=== PATIENT | male | born 1965 | race Caucasian/White ===

== ENCOUNTER 2017-02-27 10:37 | Day surgery (SDC) | payer OTHER ==
[~2017-02-27] VITALS: Ht 193 cm; Wt 97.5 kg
[~2017-02-27 10:37] MED LIST: 0.9% Sodium Chloride 1,000 ML IV SCH; CYCL10TA9 PO; KEN25CR EXT; KLO5T PO; PARO20TA5 PO; Sodium Chloride LOK Flush 10 mL Syringe IV PRN; fentaNYL-PF 50 mCg/mL 2 mL Inj IVPUSH PRN
[2017-02-27 11:00] VITALS: BP 135/89; PULSE 98; RESP 16; O2SAT 100
--- NOTE | 2017-02-27 12:53 | PCM.ENDCOL ---
Colonoscopy Date of Service: Feb 27, 2017 Physician David Caldwell MD Pre Procedure Diagnosis: Screening history of polyp Post Procedure Dx & Findings: Polyp hemorrhoids diverticuli Procedure Colonoscopy PROCEDURE IN DETAIL: Prep adequate Withdrawal time 16 minutes After unremarkable rectal examination the Olympus video colonoscope was inserted patient's anal canal and was advanced to cecum. Landmarks were identified including the ileocecal valve and appendiceal orifice. Scope was withdrawn systematically. Visualized colonic mucosa showed healthy shiny mucosa with normal healthy-appearing vasculature. In the cecum, there were 2 polyps. One was about 5 mm in size this was removed completely using cold snare. The other one was about millimeters in size which was also removed completely using cold snare. In the ascending colon colon, there was 1 cm polyp which was removed completely using hot snare. Visible vessel noted therefore resolution clip deployed. Successful deployment. In the transverse colon, as a 1 mm polyp which was removed completely using cold forceps. In the descending colon, there was a 3 mm polyp which was removed completely using cold snare. In the rectum there was another 3 mm polyp which was removed completely using cold snare. Patient had several medium-sized diverticula in the sigmoid colon. In the rectum retroflexion was done which showed hemorrhoids. Anal canal was inspected carefully on the way out and hemorrhoids noted. Impression Polyps 6 status post complete removal Diverticuli Hemorrhoids Recommendation Repeat colonoscopy 3 years Diverticula diet Presedation Assessment Risks and Benefits Informed consent was obtained from the patient after all risks and benefits including but not limited to drug reaction, infection, pain, bleeding, perforation, as well as alternatives were discussed. Patient monitoring Continuous pulse oximetry, cardiac monitoring, blood pressure monitoring, IV access, and oxygen at 2L per nasal cannula. Periprocedural Fentanyl: Fentanyl 200mcg Incrementally Midazolam: Midazolam 10mg Incrementally Complications There were no periprocedural complications identified. Post Procedure Plan Post Procedure Recommendations 1. Restrict activities today. 2. Resume normal activities in the morning. 3. Resume medications. 4. Patient informed of normal post procedure side effects as bloating, drowsiness, blood streaking in the stool. 5. average risk CRCS. If colon polyps come back as: -Hyperplastic- can repeat colonoscopy in 10 years -Tubular adenoma- repeat colonoscopy in 5 years -Tubulovillous/villous adenoma- repeat colonoscopy in 3 years -If any dysplasia- return to clinic as soon as possible 6. Please don't hesitate to call me with any questions. David Caldwell MD Feb 27, 2017 12:53
[2017-02-27 12:56] VITALS: BP 133/76; PULSE 83; RESP 16; O2SAT 95
[2017-02-27 13:06] VITALS: BP 133/72; PULSE 93; RESP 16; O2SAT 96
[2017-02-27 13:11] VITALS: BP 149/83; PULSE 76; RESP 16; O2SAT 97
--- NOTE | 2017-03-01 18:42 | PATH ---
SURGICAL PATHOLOGY Attending Physician:Daivd Caldwell M.D. CASE STATUS: Signed Out PATIENT NAME: LENO GONZALEZ PID: [id number] : 1965 DATE COLLECTED:02/27/2017 20:26 SPECIMEN: 1: Colon, Biopsy 2: Colon, Biopsy 3: Colon, Biopsy 4: Colon, Biopsy 5: Rectum, Biopsy CLINICAL HISTORY: 1). CECUM POLYPS 2). ASCENDING POLYP 3). TRANSVERSE POLYP 4). DESCENDING POLYP 5). RECTAL POLYP FINAL DIAGNOSIS: 1. Cecum, Polyps, Biopsies: Portions of tubular adenoma x2; negative for high-grade dysplasia. 2. Ascending Colon, Polyp, Biopsy: Multiple portions (approximately 8) of sessile serrated adenoma. 3. Transverse Colon, Polyp, Biopsy: Tubular adenoma; negative for high-grade dysplasia. 4. Descending Colon, Polyp, Biopsy: Tubular adenoma; negative for high-grade dysplasia. 5. Rectum, Polyp, Biopsy: Superficial portions of colorectal mucosa x 2 with rare lymphoid aggregates and no significant histomorphologic abnormality. ICD10: K63.5 GROSS DESCRIPTION: The specimen is received in five formalin filled containers labeled with the patient's name. 1). The specimen is sublabeled "cecum polyp" and consists of 2 portions of tissue which aggregate to 0.6 x 0.6 x 0.5 CM. The specimen is entirely submitted in cassette 1A. 2). The specimen is sublabeled "ascending polyp" and consists of multiple portions of tissue which aggregate to 0.7 x 0.6 x 0.3 CM. The specimen is entirely submitted in cassette 2A. 3). The specimen is sublabeled "transverse polyp" and consists of a 0.3 x 0.2 x 0.2 CM portion of tissue which is entirely submitted in cassette 3A. 4). The specimen is sublabeled "descending polyp" and consists of 2 portions of tissue which aggregate to 0.4 x 0.4 x 0.3 CM. The specimen is entirely submitted in cassette 4A. 5). The specimen is sublabeled "rectal polyp" and consists of 2 portions of tissue which aggregate to 0.4 x 0.4 x 0.3 CM. The specimen is entirely submitted in cassette 5A. 02/27/2017 [facility] ICD-9 CODES: CPT CODES: 1: 43825 2: 05720 3: 78417 4: 01289 5: 02761 Electronically Signed Out Allison Nayak MD [facility] [address], [place] [address] Technical component performed at [facility], [address], [place], [address]
== END 2017-02-27 23:59 | disposition home or self-care (01) ==
LOC: END 10:37
PROVIDERS: ATTEND Internal Medicine
DX: Z12.11 Encounter for screening for malignant neoplasm of colon (principal); D12.0 Benign neoplasm of cecum; D12.2 Benign neoplasm of ascending colon; D12.3 Benign neoplasm of transverse colon; D12.4 Benign neoplasm of descending colon; K62.1 Rectal polyp; K57.30 Diverticulosis of large intestine without perforation or abscess without bleeding; K64.8 Other hemorrhoids; Z86.010 Personal history of colon polyps; Z80.0 Family history of malignant neoplasm of digestive organs; F42.9 Obsessive-compulsive disorder, unspecified; F41.0 Panic disorder [episodic paroxysmal anxiety]; B02.9 Zoster without complications; K21.9 Gastro-esophageal reflux disease without esophagitis
CPT/HCPCS: 45380; 45382; 45385; 99153; J7030